=== PATIENT | male | born 1995 | race Caucasian/White ===

== ENCOUNTER 2018-10-10 08:27 | Day surgery (SDC) | payer OTHER ==
[~2018-10-10 08:27] MED LIST: DESFLURANE 15 MIN; GLYCOPYRROLATE 0.4 MG INJ; LIDOCAINE 2% (SDV) 5 ML INJ; NEOSTIGMINE 3 MG/3 ML SYRINGE; PROPOFOL 200 MG INJ; ROCURONIUM 50 MG INJ; SUCCINYLCHOLINE CHLORIDE 100 MG/5 ML SYG IV
[2018-10-10] MEDS ORDERED: COCAINE 4% 4 ML TOP (12:40)
[2018-10-10] MEDS ORDERED: MEPERIDINE 25 MG INJ IV (13:00)
[2018-10-10] MEDS ORDERED: DIPHENHYDRAMINE 50 MG INJ IV (13:00)
[2018-10-10] MEDS ORDERED: METOCLOPRAMIDE 10 MG INJ IV (13:00)
[2018-10-10] MEDS ORDERED: ALBUTEROL 0.083% (NEB) 2.5 MG/3 ML AMP HHN (13:00)
[2018-10-10] MEDS ORDERED: FENTAnyl 50 MCG/ML VIAL IV ×2 (13:00)
[2018-10-10] MEDS ORDERED: HYDROmorphONE 1 MG/5 ML IV SYRINGE IV ×2 (13:00)
[2018-10-10] MEDS ORDERED: FENTAnyl 50 MCG/ML VIAL (13:01)
[2018-10-10] MEDS ORDERED: MIDAZOLAM 1 MG/ML 2 ML INJ (13:08)
[2018-10-10] MEDS ORDERED: PHENYLephrine (100 MCG/ML) 5ML SYG (13:30)
[2018-10-10] MEDS: ONDANSETRON 4 MG INJ IV (14:30)
[2018-10-10] MEDS: HYDROmorphONE 1 MG/5 ML IV SYRINGE IV (14:31)
[2018-10-10] MEDS: BACITRACIN/POLYMYXIN 28.35 GM OINT TOP (14:36)
[2018-10-10] MEDS: COCAINE 4% 4 ML TOP (14:36)
[2018-10-10] MEDS: LIDOCAINE 1%/EPI 30 ML INJ (14:37)
[2018-10-10] MEDS: HYDROCODONE/APAP (7.5/325) TAB PO (15:00)
== END 2018-10-10 15:50 | disposition home or self-care (01) ==
LOC: SDS 08:27
DX: J34.2 Deviated nasal septum (principal); J34.3 Hypertrophy of nasal turbinates; J33.8 Other polyp of sinus
CPT/HCPCS: 30130; 88304; 90686